=== PATIENT | male | born 1940 | race Caucasian/White ===

== ENCOUNTER 2017-09-02 17:39 | Emergency (ER) | payer OTHER ==
[~2017-09-02] VITALS: Ht 175.3 cm; Wt 60.8 kg
[~2017-09-02 17:39] MED LIST: ACET-2165 PO; AMLO5TAB4 PO; ASPI-859 PO; CALC-1050 PO; CLOP75TA2 PO; DORZ1DRO5 EACH EYE; HYDR25TA4 PO; LACT1CAP71 PO; LIP10 PO; MULT-1117 PO; PRO40 PO
[2017-09-02 17:54] VITALS: BP_SYST 155
[2017-09-02 20:10] VITALS: BP_SYST 164
== END 2017-09-02 20:10 | disposition home or self-care (01) ==
LOC: SED 17:39
DX: I10 Essential (primary) hypertension (principal); K21.9 Gastro-esophageal reflux disease without esophagitis; Z90.49 Acquired absence of other specified parts of digestive tract; Z97.8 Presence of other specified devices; Z87.442 Personal history of urinary calculi; Z79.899 Other long term (current) drug therapy
CPT/HCPCS: 93005; 99283

== ENCOUNTER 2018-04-05 05:50 | Inpatient (IN) | payer OTHER ==
[2018-03-30 12:07] LABS: HEMOGLOBIN 11.3 g/dL (14.0-18.0); MEAN CORPUSCULAR HEMOGLOBIN 37 pg (27-31); RED BLOOD CELL COUNT(AUTO) 3.06 MIL/uL (4.2-6.2); WHITE BLOOD COUNT (AUTO) 7.7 K/uL (4.8-10.8)
[2018-03-30 12:25] LABS: HEMATOCRIT 33.3 % (36-54); MEAN CORPUSCULAR HGB CONC 34 % (32-36); MEAN CORPUSCULAR VOLUME 109 fL (79.0-98.0); PLATELET COUNT (AUTO) 181 K/uL (130-430); RED CELL DISTRIBUTION WIDTH 19.6 % (9.0-15.0)
[2018-03-30 13:41] LABS: BAND % (MANUAL) 2 % (0-6); BASOPHILS % (MANUAL) 0 % (0-2); EOSINOPHILS % (MANUAL) 2 % (0-7); LYMPHOCYTES % (MANUAL) 22 % (20-46); MONOCYTES % (MANUAL) 6 % (0-11)
[~2018-04-05] VITALS: Ht 175.3 cm; Wt 59.0 kg
[2018-04-05] MEDS ORDERED: TELM80TA2 PO (06:41)
[2018-04-05] MEDS ORDERED: RANI-362 PO (06:41)
[2018-04-05] MEDS ORDERED: CEFAZOLIN 2 GM IVPB PREMIX 50 ML IV ONE (06:45)
[2018-04-05] MEDS ORDERED: ONDANSETRON HCL 4 MG/2 ML VIAL IVP PRN ×2 (09:00→13:15)
[2018-04-05] MEDS ORDERED: fentaNYL CITRATE/PF 100 MCG/2 ML AMP IVP PRN ×2 (09:00)
[2018-04-05] MEDS ORDERED: LR 1,000 ML IV.SOLN IV ONE (12:35)
[2018-04-05] MEDS ORDERED: BUPIVACAINE /PF 0.25% 30 ML VIAL INJ ONE (12:35)
[2018-04-05] MEDS ORDERED: ONDANSETRON HCL 4 MG/2 ML VIAL ONE (12:35)
[2018-04-05] MEDS ORDERED: DEXAMETHASONE SOD PHOSPHATE 4 MG/ML VIAL ONE (12:35)
[2018-04-05] MEDS ORDERED: fentaNYL CITRATE/PF 100 MCG/2 ML AMP ONE ×2 (12:35→13:12)
[2018-04-05] MEDS ORDERED: SEVOFLURANE 15 MIN GAS INH ONE (12:35)
[2018-04-05] MEDS ORDERED: MIDAZOLAM HCL 5 MG/ML VIAL (VERSED) IV ONE (12:35)
[2018-04-05] MEDS ORDERED: ROCURONIUM BROMIDE 10 MG/ML (ZEMURON) ONE (12:35)
[2018-04-05] MEDS ORDERED: LIDOCAINE/EPI 1% 1:100000 20 ML VIAL INJ ONE (12:35)
[2018-04-05] MEDS ORDERED: NS 1000 ML IV.SOLN IV ONE (12:35)
[2018-04-05] MEDS ORDERED: PROPOFOL 200MG/ 20ML VIAL (DIPRIVAN) IV ONE (12:35)
[2018-04-05] MEDS ORDERED: ONDANSETRON 4 MG ODT TAB PO PRN (13:15)
[2018-04-05] MEDS ORDERED: HYDROcodone/ACETAMIN 5-325 MG TAB (NORCO/ VICODIN) PO PRN (13:15)
[2018-04-05 13:44] VITALS: BP_SYST 138
[2018-04-05] MEDS: KCL 20 mEq in D5/0.45NS 1000mL 1,000 ML IV SCH (14:54)
[2018-04-05 17:55] VITALS: BP_SYST 138
[2018-04-05 20:58] VITALS: BP_SYST 120
[2018-04-05] MEDS: CALCIUM 500 MG/TAB PO SCH (21:01)
[2018-04-05 21:24] LABS: ALBUMIN 3.4 g/dL (3.4-4.8); CALCIUM 8.2 mg/dL (8.4-11.0)
[2018-04-06 00:34] VITALS: BP_SYST 117
[2018-04-06] MEDS: KCL 20 mEq in D5/0.45NS 1000mL 1,000 ML IV SCH ×2 (00:49→10:39)
[2018-04-06 06:05] LABS: ALBUMIN 3.3 g/dL (3.4-4.8); CALCIUM 8.3 mg/dL (8.4-11.0)
[2018-04-06] MEDS: CALCIUM 500 MG/TAB PO SCH ×2 (08:11→15:53)
[2018-04-06 08:22] VITALS: BP_SYST 150
[2018-04-06] MEDS ORDERED: LOSARTAN POTASSIUM 50 MG TABLET (COZAAR) PO SCH (09:00)
[2018-04-06] MEDS ORDERED: amLODIPine BESYLATE 5 MG TABLET PO SCH (09:00)
[2018-04-06] MEDS ORDERED: MULTIVITAMINS TAB 1 TABLET PO SCH (09:00)
[2018-04-06] MEDS ORDERED: FAMOTIDINE 20 MG TABLET PO SCH (09:00)
[2018-04-06] MEDS ORDERED: ATORVASTATIN 10 MG TABLET PO SCH (09:00)
[2018-04-06] MEDS ORDERED: TELMISARTAN 80 MG TABLET PO SCH (09:00)
[2018-04-06 11:28] VITALS: BP_SYST 138
[2018-04-06] MEDS ORDERED: DORZ10DR13 OP (11:57)
[2018-04-06] MEDS ORDERED: LEVO100T9 PO (13:25)
[2018-04-06] MEDS ORDERED: CALC-1050 PO (13:26)
[2018-04-06] MEDS ORDERED: NORMAL SALINE 5 ML DISP.SYRIN IVF SCH (14:00)
[2018-04-06 14:02] VITALS: BP_SYST 144
[2018-04-06 15:59] VITALS: BP_SYST 143
[2018-04-06 16:50] VITALS: BP_SYST 125
== END 2018-04-06 17:15 | disposition home or self-care (01) | DRG 627 ==
LOC: SMU 05:50
PROVIDERS: ADMIT Otolaryngology; ATTEND Otolaryngology
PROC: 4A1174G Monitoring of Peripheral Nervous Electrical Activity, Intraoperative, Via Natural or Artificial Opening (ICD-10-PCS; 2018-04-05)
PROC: 0GTK0ZZ Resection of Thyroid Gland, Open Approach (ICD-10-PCS; principal; 2018-04-05 07:30)
DX: E04.1 Nontoxic single thyroid nodule (principal); J44.9 Chronic obstructive pulmonary disease, unspecified; I10 Essential (primary) hypertension; I25.10 Atherosclerotic heart disease of native coronary artery without angina pectoris; K21.9 Gastro-esophageal reflux disease without esophagitis; H40.9 Unspecified glaucoma; Z90.49 Acquired absence of other specified parts of digestive tract; Z95.5 Presence of coronary angioplasty implant and graft; Z88.6 Allergy status to analgesic agent; Z91.011 Allergy to milk products; Z79.899 Other long term (current) drug therapy
CPT/HCPCS: 36415; 71046-TC; 82040-TC; 82310-TC; 83970; 85007; 85027; 87081; 88307; 94010; C1782; J0690; J1100; J2250; J2405; J2704; J3010; J3490; J7030; J7120

== ENCOUNTER 2018-10-22 15:09 | Inpatient (IN) | payer OTHER ==
[~2018-10-22] VITALS: Ht 175.3 cm; Wt 58.5 kg
[~2018-10-22 15:09] MED LIST changes: -ASPI-859 PO; +DORZ10DR13 OP; +LEVO100T9 PO; +RANI-362 PO; +TELM80TA2 PO
[2018-10-22 15:20] VITALS: BP_SYST 186
--- NOTE | 2018-10-22 15:45 | NUR ---
Patient to ER bed 8 to gown for evaluation. Side rails up. Report given to Jose De Jesus ALFONSO.
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
--- NOTE | 2018-10-22 16:20 | NUR ---
ER at bedside examining patient.
[2018-10-22] MEDS ORDERED: NACL 0.9% 1,000 ML IV ONE (16:30)
[2018-10-22 16:56] LABS: ANION GAP 6 (5-15); CALCIUM 8.5 mg/dL (8.4-11.0); CHLORIDE 95 mmol/L (98-107); CREATININE 0.98 mg/dL (0.55-1.30); GLUCOSE 121 mg/dL (70-99); POTASSIUM 4.3 mmol/L (3.5-5.1); SODIUM SERUM 127 mmol/L (136-145); UREA NITROGEN, BLOOD 18 mg/dL (8-21)
[2018-10-22 17:00] LABS: ALANINE AMINOTRANSFERASE 15 U/L (12-78); ASPARTATE AMINOTRANSFERASE 17 U/L (10-37); TOTAL BILIRUBIN 0.4 mg/dL (0.0-1.0)
--- NOTE | 2018-10-22 17:00 | NUR ---
# 20 gauge angiocath placed to RAC. Use of asceptic technique. Opsite placed over site. Blood return noted. Blood for lab drawn from site. Flushed with 10 cc of normal saline. No evidence of infiltration noted. Patient tolerated well.
[2018-10-22 17:09] LABS: HEMATOCRIT 27.6 % (36-54); HEMOGLOBIN 9.4 g/dL (14.0-18.0); MEAN CORPUSCULAR HEMOGLOBIN 37 pg (27-31); MEAN CORPUSCULAR HGB CONC 34 % (32-36); MEAN CORPUSCULAR VOLUME 109 fL (79.0-98.0); PLATELET COUNT (AUTO) 384 K/uL (130-430); RED BLOOD CELL COUNT(AUTO) 2.54 MIL/uL (4.2-6.2); RED CELL DISTRIBUTION WIDTH 19.4 % (9.0-15.0); WHITE BLOOD COUNT (AUTO) 11.1 K/uL (4.8-10.8)
[2018-10-22 17:10] LABS: BASOPHILS # (AUTO) 0.1 K/uL (0.0-0.2); BASOPHILS % (AUTO) 0.5 % (0.0-2.0); EOSINOPHILS # (AUTO) 0.1 K/uL (0.0-0.4); EOSINOPHILS % (AUTO) 0.7 % (0.0-4.0); LYMPHOCYTES % (AUTO) 9.4 % (20.5-51.5); MONOCYTES # (AUTO) 0.9 K/uL (0.0-1.0); MONOCYTES % (AUTO) 8.1 % (1.7-9.3); NEUTROPHILS % (AUTO) 81.3 % (40.0-70.0)
[2018-10-22] MEDS ORDERED: SUCR1TAB78 PO (17:34)
--- NOTE | 2018-10-22 17:41 | NUR ---
Patient will be admitted to care of . Admitted to telemetry unit. Will go to room 114B. Summary report printed. Report will be given at bedside.
--- NOTE | 2018-10-22 17:55 | NUR ---
Dr. Waldrop at bedside.Pt cleared of isolation.
--- NOTE | 2018-10-22 18:33 | NUR ---
Admission Note Received patient from ER with diagnosis of hemoptasis. Initial Plan of Care discussed-patient verbalized understanding. Family at bedside. Oriented to room, call light, pain management and safety.
[2018-10-22 18:37] VITALS: BP_SYST 146
--- NOTE | 2018-10-22 18:50 | NUR ---
Notes In bed, family at bedside. Admit nurse at bedside doing admission data. No acute distress noted. make patient comfortable in bed. will endorse.
--- NOTE | 2018-10-22 19:20 | NUR ---
OPENING NOTES Pt and endorsement received from day shift nurse. Pt is AAOx4, lying in bed. Dorothy at bedside. No complains of pain at this time. No signs of acute distress or SOB noted. Encouraged to use call light when needed. Safety precautions in place with 3 side rails up, bed alarm on, locked and in lowest position. Call light with pt. Will continue to monitor.
[2018-10-22] MEDS: DORZOLAMIDE HCL/TIMOLOL MAL. 10 ML EYE DROPS (COSOPT) EACH EYE SCH (21:00)
[2018-10-22] MEDS ORDERED: cefTRIAXone 1 GM IVPB PREMIX 50 ML IV ONE (21:17)
[2018-10-22 21:21] VITALS: BP_SYST 148
[2018-10-22] MEDS: cefTRIAXone 1 GM in D5W 50 ML IV SCH (21:27)
--- NOTE | 2018-10-22 23:00 | NUR ---
RESTING Pt is resting in bed with both eyes closed. With visible chest rise and fall with unlabored breathing noted. No complains of pain and no signs of acute distress or SOB noted. Safety precautions in place and call light with pt. Will continue to monitor.
[2018-10-22 23:41] VITALS: BP_SYST 135
--- NOTE | 2018-10-23 01:24 | NUR ---
RESTING Pt is resting in bed with both eyes closed. With visible chest rise and fall with unlabored breathing noted. No complains of pain at this time. No signs of acute distress or SOB noted. Safety precautions in place and call light with pt. Will continue to monitor.
--- NOTE | 2018-10-23 03:15 | NUR ---
RESTING Pt is resting in bed with both eyes closed. With visible chest rise and fall with unlabored breathing noted. No complains of pain or discomfort. No signs of acute distress or SOB noted. Safety precautions in place and call light with pt. Will continue to monitor.
[2018-10-23] MEDS: LEVOTHYROXINE SODIUM 0.1 MG TABLET PO SCH (05:21)
--- NOTE | 2018-10-23 06:24 | NUR ---
CLOSING NOTES Pt is resting in bed with both eyes closed. With visible chest rise and fall with unlabored breathing noted. No complains of pain at this time. No signs of acute distress or SOB noted. All needs attended throughout the shift. Safety precautions maintained with 3 side rails up, bed alarm on, locked and in lowest position. Call light with pt. Will continue to monitor.
[2018-10-23 06:37] LABS: ANION GAP 7 (5-15); CHLORIDE 97 mmol/L (98-107); CREATININE 0.94 mg/dL (0.55-1.30); GLUCOSE 98 mg/dL (70-99); POTASSIUM 3.9 mmol/L (3.5-5.1); SODIUM SERUM 130 mmol/L (136-145); UREA NITROGEN, BLOOD 15 mg/dL (8-21)
--- NOTE | 2018-10-23 07:35 | NUR ---
OPENING NOTE At initial assessment, patient is awake, alert and oriented x4, denies any pain/discomfort at this time. Breathing even and unlabored. IV site on the RAC [address] Waldrop seen and examined the patient at the bedside. Safety and fall precautions in place, bed low and locked, side rails up x3, call light within reach, will continue to monitor.
--- NOTE | 2018-10-23 07:45 | NUR ---
Consent for bronchoscopy Patient verbalized understanding of bronchoscopy and indication as explained by Dr. Waldrop, instructed NPO post midnight.
[2018-10-23 08:09] VITALS: BP_SYST 143
[2018-10-23] MEDS: FAMOTIDINE 20 MG TABLET PO SCH ×3 (08:18→09:00)
[2018-10-23] MEDS: LOSARTAN POTASSIUM 50 MG TABLET (COZAAR) PO SCH ×2 (08:18→08:37)
[2018-10-23] MEDS: DORZOLAMIDE HCL/TIMOLOL MAL. 10 ML EYE DROPS (COSOPT) EACH EYE SCH ×2 (08:19→20:42)
--- NOTE | 2018-10-23 08:38 | NUR ---
Medication Patient is very sensitive to medication and prefer to take his own pill , refused to take the converted medication , pharmacy informed , will bring patient medicines to be verified by the pharmacist.
--- NOTE | 2018-10-23 11:17 | NUR ---
ROUNDS Patient is awake, no respiratory distress noted. Denies any pain/discomfort at this time. Safety precautions observed, instructed patient to use call light when needing assistance, patient verbalized understanding. Call light within reach.
[2018-10-23 11:29] VITALS: BP_SYST 126
--- NOTE | 2018-10-23 13:00 | NUR ---
MEDICATION Home medication brought by patient's and medication sent to pharmacy for verification.
[2018-10-23] MEDS: TELMISARTAN 80 MG PO SCH (14:15)
--- NOTE | 2018-10-23 14:25 | NUR ---
ROUNDS Patient is awake, denies any pain/discomfort. No coughing noted. Breathing even and unlabored. IV site remains patent and intact. at the bedside. Safety precautions observed, call light within reach.
[2018-10-23 16:06] VITALS: BP_SYST 149
--- NOTE | 2018-10-23 16:35 | NUR ---
ROUNDS Patient is awake, in stable condition. No respiratory distress noted. Safety precautions observed, call light within reach, will continue to monitor.
[2018-10-23] MEDS: cefTRIAXone 1 GM in D5W 50 ML IV SCH (17:47)
--- NOTE | 2018-10-23 18:36 | NUR ---
CLOSING NOTE Patient is awake, no respiratory distress noted. Denies any pain/discomfort at this time. IV site remains patent and intact, saline locked. No further needs at this time. Safety and fall precautions observed, bed low and locked, side rails up x2, call light within reach, all needs met and anticipated throughout the shift, will endorse plan of care.
--- NOTE | 2018-10-23 19:50 | NUR ---
Initial note: Received report from dayshift RN. Patient is in bed watching TV. No respiratory distress, no complaints of pain or shortness of breath. Alert and oriented x4. IV noted to patient's right AC, site is patent and benign. Call light with patient. Patient refused bed alarm despite education. Safety and fall precautions in place. Will continue to monitor.
[2018-10-23 20:00] VITALS: BP_SYST 132
--- NOTE | 2018-10-23 20:47 | NUR ---
Med pass: Administered scheduled eye drops at this time. Education provided regarding medications, patient verbalized understanding. Bed alarm refused despite education. Call light with patient. Will continue monitoring.
--- NOTE | 2018-10-23 22:31 | NUR ---
Rounds: Patient is resting in bed with eyes closed. Does not show any acute distress. Call light with patient. Will continue to monitor.
[2018-10-24] VITALS (7 sets, daily range): BP systolic 127–148
--- NOTE | 2018-10-24 | NUR ---
NPO: NPO status now in place for patient's bronchoscopy tomorrow. Patient verbalized understanding of NPO status. Removed food and beverages from patient's bedside. Call light with patient. Will continue monitoring.
--- NOTE | 2018-10-24 02:46 | NUR ---
Rounds: Patient is asleep. No acute distress. Respirations even and unlabored. Call light with patient, will continue monitoring.
--- NOTE | 2018-10-24 05:38 | NUR ---
Closing note: Patient is resting in bed, no distress. Respirations even and unlabored on room air. All needs met. Safety and fall precautions observed throughout shift. Call light with patient. Will continue to monitor until endorsement of care.
[2018-10-24] MEDS: LEVOTHYROXINE SODIUM 0.1 MG TABLET PO SCH (06:00)
[2018-10-24] MEDS ORDERED: MIDAZOLAM HCL 5 MG/5 ML VIAL ONE (07:29)
[2018-10-24] MEDS ORDERED: LIDOCAINE 2% JELLY UROJECT 10 ML MM ONE ×2 (07:31→11:13)
[2018-10-24] MEDS ORDERED: LIDOCAINE 1%, 20 ML MDV 20 ML ONE (07:37)
--- NOTE | 2018-10-24 07:53 | NUR ---
Opening notes, Pt in bed, no c/o pain, pt is aaox4, denies pain, no sob, no distress. no c/o abd pain, no bloody sputum or phlegm . pt is afebrile. saline lock is intact and patent. no s/s of infiltration on the iv site. safety precaution in place. call light in reach. bed in low position. encouraged to call for assist and pain med or any concerns. will cont to monitor.
--- NOTE | 2018-10-24 10:12 | NUR ---
pt in bed, family at bedside, no c/o of pain. pt waiting to be picked up for bronch procedure.
--- NOTE | 2018-10-24 10:19 | NUR ---
pt taken by ship engines operating engineer to gi lab for procedure. pt was in stable condition.
[2018-10-24] MEDS: fentaNYL CITRATE/PF 100 MCG/2 ML AMP ONE ×2 (10:58→11:00)
[2018-10-24] MEDS: MIDAZOLAM HCL 5 MG/5 ML VIAL ONE ×5 (11:00→12:58)
--- NOTE | 2018-10-24 12:15 | NUR ---
pt came back from bronchoscopy, vitals wnl patients normal limits, pt has not fever. o2 sat on room air was 92%, bilat lung sounds audible. lung sound clear. will cont to monitor.
[2018-10-24] MEDS: FAMOTIDINE 20 MG TABLET PO SCH ×2 (12:39→12:41)
[2018-10-24] MEDS: TELMISARTAN 80 MG PO SCH (12:39)
[2018-10-24] MEDS: DORZOLAMIDE HCL/TIMOLOL MAL. 10 ML EYE DROPS (COSOPT) EACH EYE SCH (12:40)
--- NOTE | 2018-10-24 16:30 | NUR ---
D/C Patient Patient given medication reconciliation form and D/C instructions. Exit Care provided. Patient verbalized understanding. MD discussed with patient the results and treatment provided. Ambulatory with steady gait for discharge to home. Patient in stable condition, ID band removed. IV catheter removed, intact and dressing applied, no active bleeding. No Rx given. Patient educated on pain management. All belongings sent with patient.
--- NOTE | 2018-10-25 12:00 | NUR ---
Discharge Follow Up Phone Call [employer] phoned patient, . Patient stated he was doing fine. He made a follow up appointment with Dr Waldrop for 10/31/18. He had no questions about his discharge instructions and has stopped Plavix and aspirin, as directed, until his follow up appointment. No questions or concerns.
== END 2018-10-24 16:40 | disposition home or self-care (01) | DRG 204 ==
LOC: SED 15:09 → SMU 17:17
PROVIDERS: ADMIT Specialist; ATTEND Specialist
PROC: 0BDF8ZX Extraction of Right Lower Lung Lobe, Via Natural or Artificial Opening Endoscopic, Diagnostic (ICD-10-PCS; 2018-10-24)
PROC: 0B9F8ZX Drainage of Right Lower Lung Lobe, Via Natural or Artificial Opening Endoscopic, Diagnostic (ICD-10-PCS; principal; 2018-10-24 10:00)
DX: R04.2 Hemoptysis (principal); E87.1 Hypo-osmolality and hyponatremia; D64.9 Anemia, unspecified; R91.8 Other nonspecific abnormal finding of lung field; H40.9 Unspecified glaucoma; I10 Essential (primary) hypertension; I25.10 Atherosclerotic heart disease of native coronary artery without angina pectoris; K21.9 Gastro-esophageal reflux disease without esophagitis; Z88.8 Allergy status to other drugs, medicaments and biological substances; Z95.1 Presence of aortocoronary bypass graft; Z90.49 Acquired absence of other specified parts of digestive tract; Z79.02 Long term (current) use of antithrombotics/antiplatelets
CPT/HCPCS: 31625; 36415; 71250-TC; 80048; 80053; 82607; 83540-TC; 84443-TC; 85025; 85610-TC; 85730-TC; 87040-TC; 87070; 87101; 87116; 88108; 88160; 88305; 99285; J0696; J2001; J2250; J3010; J7030; J7060